=== PATIENT | male | born 1945 | race Caucasian/White ===

== ENCOUNTER 2017-08-13 10:33 | Emergency (ER) | payer BC, OTHER ==
[2017-08-13 11:01] LABS: BASOPHIL % 0.3 % (0-2); PLATELET COUNT 284 x10^3mcL (130-400)
[2017-08-13 11:05] LABS: RED CELL DISTRIBUTION WIDTH 15.2 % (11.5-14.5)
[2017-08-13 11:07] LABS: CALCIUM 9.4 mg/dL (8.5-10.1); CHLORIDE SERUM 103 mmol/L (98-107); GLUCOSE SERUM 98 mg/dL (74-106); POTASSIUM SERUM 3.8 mmol/L (3.5-5.1); SODIUM SERUM 140 mmol/L (136-145)
[2017-08-13 11:12] LABS: ALKALINE PHOSPHATASE 127 U/L (46-116); ALT/SGPT 55 U/L (16-63); AST/SGOT 41 U/L (15-37); BILIRUBIN TOTAL 0.5 mg/dL (0.20-1.00)
[2017-08-13] MEDS ORDERED: ASPIRIN ADULT L81 M5 PO (11:14)
[2017-08-13] MEDS ORDERED: LIPITOR80 MG PO (11:14)
[2017-08-13 11:15] LABS: TOTAL PROTEIN, SERUM 8.5 g/dL (6.4-8.2)
[2017-08-13] MEDS ORDERED: STOOL SOFTENER250 M2 PO (11:15)
[2017-08-13] MEDS ORDERED: ZYRTEC10 MG PO (11:15)
[2017-08-13] MEDS ORDERED: ZOLOFT100 MG PO (11:16)
[2017-08-13] MEDS ORDERED: TRAZODONE50 M1 PO (11:16)
[2017-08-13] MEDS ORDERED: VERAPAMIL HCL180 M1 PO (11:16)
[2017-08-13] MEDS ORDERED: NEU300 PO (11:17)
[2017-08-13] MEDS ORDERED: FERROUS SULFAT325 M2 PO (11:18)
[2017-08-13] MEDS ORDERED: ZESTRIL5 MG PO (11:18)
[2017-08-13] MEDS ORDERED: BENAZEPRIL HYDR20 M1 PO (11:20)
[2017-08-13] MEDS ORDERED: FLO4 PO (11:20)
[2017-08-13] MEDS ORDERED: APAP500 MG PO (11:21)
[2017-08-13] MEDS ORDERED: CLOPIDOGREL75 M1 PO (11:21)
[2017-08-13] MEDS ORDERED: CARVEDILOL3.125 M1 PO (11:21)
[2017-08-13] MEDS ORDERED: BACLOFEN10 MG PO (11:22)
[2017-08-13] MEDS ORDERED: FINASTERIDE5 M1 PO (11:22)
[2017-08-13 12:30] VITALS: BP 122/74
== END 2017-08-13 12:30 | disposition short-term general hospital (02) ==
LOC: EDBD 10:33 → ED 10:33
PROVIDERS: Emergency Medicine
DX: I61.9 Nontraumatic intracerebral hemorrhage, unspecified (principal); I10 Essential (primary) hypertension; J44.9 Chronic obstructive pulmonary disease, unspecified; G81.94 Hemiplegia, unspecified affecting left nondominant side; Z86.73 Personal history of transient ischemic attack (TIA), and cerebral infarction without residual deficits
CPT/HCPCS: 36415; 83880; Q0092